=== PATIENT | female | born 1945 | race Caucasian/White ===

== ENCOUNTER 2018-05-06 06:22 | Emergency (ER) | payer MEDICARE, OTHER ==
[2018-05-06 06:33] VITALS: BP 126/85
[2018-05-06] MEDS ORDERED: PROPARACAINE 0.5% OPHTH DROPS 15 ML EACHEYE STA (07:01)
--- NOTE | 2018-05-06 07:01 | ED Physician Documentation ---
PD HPI OPHTHO - Stated complaint Stated Complaint: ADAM EYE SWELL - Chief complaint Chief Complaint: Heent - History obtained from History obtained from: Patient - History of Present Illness Timing - onset: How many days ago (2-3) Timing - duration: Days Timing - details: Gradual onset, Still present (redness and swelling of eyelids for 2-3 days, worsening, and today with discharge and more swelling to the left eye. No vision change. No URI symptoms.) Location: Both Quality / character: Burning Associated symptoms: Redness, Swelling, Matting (left today). No: FB sensation , Photophobia, Double vision, Decreased vision Contributing factors: No: Exposed to conjunctivitis, Recent URI, Wears contacts Similar symptoms before: Has not had sx before Recently seen: Not recently seen Review of Systems Constitutional: denies: Fever Nose: denies: Rhinorrhea / runny nose, Congestion Throat: denies: Sore throat Respiratory: denies: Dyspnea, Cough, Wheezing Skin: denies: Rash, Lesions PD PAST MEDICAL HISTORY - Past Medical History Past Medical History: Yes Cardiovascular: None Respiratory: None Neuro: None, CVA - Past Surgical History /[employer] MATE: Hysterectomy - Present Medications Home Medications: Ambulatory Orders Medication Instructions Recorded Confirmed Flurbiprofen Sodium 2 drops EACHEYE BID #1 bottle 05/06/18 Ketotifen Fumarate 2 drops EACHEYE TID PRN #1 bottle 05/06/18 Sulfacetamide 10% Ophth Drops 1 drops OPTH QID #1 bottle 05/06/18 [Sulfamide 10% Ophth Drops] - Allergies Allergies/Adverse Reactions: Allergies Allergy/AdvReac Type Severity Reaction Status Date / Time No Known Drug Allergies Allergy Verified 05/06/18 06:33 - Social History Does the pt smoke?: No Smoking Status: Never smoker Does the pt drink ETOH?: Yes ETOH Use: Wine - Immunizations Immunizations are current?: Yes PD ED PE NORMAL - Vitals Vital signs reviewed: Yes - General General: Alert and oriented X 3, No acute distress, Well developed/nourished - HEENT HEENT: PERRL, EOMI, Ears normal, Pharynx benign - Neck Neck: Supple, no meningeal sign, No adenopathy - Derm Derm: Normal color, Warm and dry, No rash PD ED PE EXPANDED - Eyes Eyes: Eyelid swelling (mostly on left), Injected conj/sclera, Exudate (mainly on left), Anterior chambers clear, Normal fundi. No: Fluorescein uptake Results - Vitals Vitals: Oxygen O2 Source Room air PD MEDICAL DECISION MAKING - ED course Complexity details: considered differential (looks like might be allergic or viral, but then the left eye is more acting bacterial on top of that. ), d/w patient - Sepsis Event Vital Signs: Oxygen O2 Source Room air Departure - Departure Disposition: 01 Home, Self Care Clinical Impression: Conjunctivitis Qualifiers: Conjunctivitis type: acute Acute conjunctivitis type: unspecified Laterality: bilateral Qualified Code(s): H10.33 - Unspecified acute conjunctivitis, bilateral Condition: Stable Record reviewed to determine appropriate education?: Yes Instructions: ED Conjunctivitis Nonspecific Follow-Up: Mir Espinal MD [Provider Admit Priv/Credential] - Prescriptions: Flurbiprofen Sodium 2 drops EACHEYE BID #1 bottle Ketotifen Fumarate 2 drops EACHEYE TID PRN #1 bottle PRN Reason: Swelling Sulfacetamide 10% Ophth Drops [Sulfamide 10% Ophth Drops] 1 drops OPTH QID #1 bottle Comments: The I redness and swelling is likely to be allergy related though the more swelling and discharge on the left eye would be suggestive of infection on top of that. I would suggest an anti-inflammatory eyedrop (flurbiprofen 1-2 drops twice daily for the next several days to week), as well as an antibiotic eyedrops (the sulfamide 1-2 drops 3-4 times a day in both eyes for the next few days). Additionally he can use an antihistamine eyedrop periodically for the redness and swelling to decrease that as well (ketotifen as needed). Recheck with your primary care or with an hook and eye sewing machine operator if not improving over the next couple of days. Discharge Date/Time: 05/06/18 08:00
== END 2018-05-06 08:00 | disposition home or self-care (01) ==
LOC: ED 06:22
DX: H10.33 Unspecified acute conjunctivitis, bilateral (principal); Z86.73 Personal history of transient ischemic attack (TIA), and cerebral infarction without residual deficits
CPT/HCPCS: 99283; J3490

== ENCOUNTER 2018-09-05 07:55 | Outpatient (CLI) | payer MEDICARE, OTHER ==
--- NOTE | 2018-09-05 17:05 | DEXA Report ---
Reason: OSTEOPENIA, MENOPAUSAL Procedure Date: 09/05/2018 Accession Number: [id number] / [id number] Procedure: DEX - Dexa Spine and/or Hip CPT Code: FULL RESULT: EXAM: Dexa Spine and/or Hip DATE: 09/05/2018 8:36 AM CLINICAL HISTORY: OSTEOPENIA, MENOPAUSAL TECHNIQUE: Dual energy x-ray absorptiometry (DXA) was performed on a [employer] System. Regions measured are the AP Spine, femoral neck, and if needed forearm. COMPARISON: None. In accordance with the International Society for Clinical Densitometry (ISCD) guidelines, data from previous exams may be reanalyzed using current recommendations and techniques. This is done to allow a more accurate basis for comparison with the current study. FINDINGS: The data for the lumbar spine is as follows: BMD (g/cm/cm) T-SCORE Z-SCORE REGION L1 0.817 -2.6 -0.9 L2 0.852 -2.9 -1.2 L3 1.011 -1.6 0.2 L4 1.188 -0.1 1.6 TOTAL 0.979 -1.7 0.1 NOTE: All evaluable vertebrae are used for classification The data for the hip is as follows: BMD (g/cm/cm) T-SCORE Z-SCORE REGION Neck 0.650 -2.8 -1.0 TOTAL 0.818 -1.5 0.1 NOTE: The femoral neck or total proximal femur, whichever is lowest, is used for classification. IMPRESSION: THE WHO CLASSIFICATION BASED ON THE INTERNATIONAL REFERENCE STANDARD IS OSTEOPOROSIS. THE FRACTURE RISK IS HIGH. RECOMMENDATION: Patients with diagnosis of osteoporosis or osteopenia should have regular bone mineral density assessment. For those eligible for Medicare, routine testing is allowed once every 2 years. Testing frequency can be increased for patients who have rapidly progressing disease or for those who are receiving medical therapy to restore bone mass. COMMENT: World Health Organization (WHO) definitions for osteoporosis and osteopenia: NORMAL BMD: T-score at -1.0 or higher, fracture risk is low OSTEOPENIA BMD: T-score between -1.0 and -2.5, fracture risk is increased. OSTEOPOROSIS BMD: T-score at -2.5 or lower, fracture risk is high. National Osteoporosis Foundation recommends: 1. Obtain adequate dietary calcium (at least 1200 mg per day) and vitamin D (400-800 international units per day). 2. Participate, as appropriate, in regular weightbearing and muscle-strengthening exercise. 3. Avoid tobacco use and reduce alcohol and caffeine intake. 4. For more detailed information see the website at www.NOF.org.
== END 2018-09-05 07:56 | disposition home or self-care (01) ==
LOC: DI 07:55
PROVIDERS: ATTEND Family Medicine
DX: M81.0 Age-related osteoporosis without current pathological fracture (principal); N95.8 Other specified menopausal and perimenopausal disorders
CPT/HCPCS: 77080

== ENCOUNTER 2019-11-06 13:34 | Outpatient (CLI) | payer MEDICARE, OTHER ==
--- NOTE | 2019-11-06 17:08 | XRAY Report ---
Reason: LOW BACK PAIN Procedure Date: 11/06/2019 Accession Number: [id number] / [id number] Procedure: XR - Lumbar Spine 2 View CPT Code: Final Report FULL RESULT: EXAM: LUMBOSACRAL SPINE RADIOGRAPHY EXAM DATE: 11/06/2019 01:56 PM. CLINICAL HISTORY: Low back pain. COMPARISONS: None. TECHNIQUE: 3 views. FINDINGS: Alignment: A mild levoscoliotic curvature at L2-L3 measures 6 degrees. No significant listhesis. Bones: Five [id number] lumbar vertebral bodies are present. No fractures or bone lesions. Disks: Moderate disk space loss and degenerative disease present at L4-L5 with more mild disease at the remaining levels. Facets: No significant degenerative facet disease. Sacroiliac Joints: Unremarkable. Soft Tissues: Normal. The visualized bowel gas pattern is normal. IMPRESSION: 1. Mild L2-L3 levoscoliosis. 2. Mild to moderate degenerative disk disease, worst at L4-L5. RADIA
--- NOTE | 2019-11-06 17:10 | XRAY Report ---
Reason: LOW BACK PAIN Procedure Date: 11/06/2019 Accession Number: [id number] / [id number] Procedure: XR - SI Joints CPT Code: Final Report FULL RESULT: EXAM: SACROILIAC JOINT RADIOGRAPHY EXAM DATE: 11/06/2019 01:56 PM. CLINICAL HISTORY: LOW BACK PAIN. COMPARISON: LUMBAR SPINE 2 VIEW 11/06/2019 1:44 PM. TECHNIQUE: 3 views. FINDINGS: Bones: Normal. No fracture or bone lesion. Joints: The sacroiliac joints are normal. No ankylosis or erosion. Mild disk height loss at L4-L5. Soft Tissues: Normal. IMPRESSION: Normal sacroiliac joint radiography. RADIA
== END 2019-11-06 13:35 | disposition home or self-care (01) ==
LOC: DI 13:34
PROVIDERS: ATTEND Registered Nurse
DX: M51.36 Other intervertebral disc degeneration, lumbar region (principal); M41.9 Scoliosis, unspecified
CPT/HCPCS: 72100; 72202

== ENCOUNTER 2020-06-16 12:51 | Outpatient (CLI) | payer MEDICARE, OTHER | END 2020-06-16 12:52 | disposition home or self-care (01) | LOC: COV 12:51 | PROVIDERS: ATTEND Family Medicine | DX: R53.83 Other fatigue (principal); Z20.828 Contact with and (suspected) exposure to other viral communicable diseases ==

== ENCOUNTER 2021-03-15 16:39 | Outpatient (CLI) | payer MEDICARE, OTHER | END 2021-03-15 16:40 | disposition home or self-care (01) | LOC: COV 16:39 | PROVIDERS: ATTEND Family Medicine | DX: M79.10 Myalgia, unspecified site (principal); R53.83 Other fatigue; R11.2 Nausea with vomiting, unspecified; Z20.822 Contact with and (suspected) exposure to COVID-19 ==

== ENCOUNTER 2021-04-23 08:00 | Outpatient (CLI) | payer MEDICARE, OTHER ==
--- NOTE | 2021-04-23 17:08 | XRAY Report ---
PROCEDURE: Knee 3 View LT INDICATIONS: LEFT KNEE PAIN TECHNIQUE: 3 views of the left knee(s) were acquired. COMPARISON: None. FINDINGS: Bones: No fractures or dislocations. No suspicious bony lesions. Mild degenerative arthritis. Soft tissues: No joint effusion. No suspicious soft tissue calcifications. IMPRESSION: Mild degenerative arthritis. No evidence acute bony abnormality of the left knee. If clinical suspicion and/or symptoms persist, further assessment with repeat plain films or advanced imaging (e.g., CT, MRI, or bone scan) may be helpful for further assessment. Reviewed by: Erasmo Baptiste MD on 04/23/2021 4:07 PM MARILYN Approved by: Erasmo Baptiste MD on 04/23/2021 4:07 PM MARILYN Station ID: [id number]
== END 2021-04-23 23:59 | disposition home or self-care (01) ==
LOC: DI.S 08:00
PROVIDERS: ATTEND Physician Assistant
DX: M25.562 Pain in left knee (principal); M17.12 Unilateral primary osteoarthritis, left knee

== ENCOUNTER 2022-08-09 12:56 | Outpatient (CLI) | payer MEDICARE, OTHER ==
--- NOTE | 2022-08-09 19:09 | XRAY Report ---
PROCEDURE: Hip w/Pelvis 2-3V RT INDICATIONS: OSTEOARTHRITIS OF RIGHT HIP JOINT TECHNIQUE: AP pelvis with lateral view(s) of the right hip(s). COMPARISON: None. FINDINGS: Bones: Moderate bilateral hip osteoarthritis, relatively symmetric. No fractures or dislocations. P elvic ring appears intact. No suspicious bony lesions. Soft tissues: The visualized bowel gas pattern is normal. No suspicious soft tissue calcifications. IMPRESSION: Relatively symmetric bilateral hip osteoarthritis. Reviewed by: Keith Adorno MD on 08/09/2022 7:08 PM PDT Approved by: Keith Adorno MD on 08/09/2022 7:08 PM PDT Station ID: [id number]
== END 2022-08-09 12:57 | disposition home or self-care (01) ==
LOC: DI.S 12:56
PROVIDERS: ATTEND Family Medicine
DX: M16.0 Bilateral primary osteoarthritis of hip (principal)